=== PATIENT | female | born 1985 | race Caucasian/White ===

== ENCOUNTER 2019-08-12 07:48 | Outpatient (CLI) | payer OTHER ==
[~2019-08-12 07:48] MED LIST: PNEU16DI2; PRENATAL CAPLE1 EACH PO; ZITHROMAX500 MG PO
== END 2019-08-12 07:52 | disposition home or self-care (01) ==
LOC: RAD 07:48
PROVIDERS: ATTEND General Practice
DX: M54.5 Low back pain (principal)

== ENCOUNTER 2020-06-09 08:49 | Outpatient (CLI) | payer OTHER | END 2020-06-09 09:07 | disposition home or self-care (01) | LOC: TOM 08:49 | PROVIDERS: ATTEND General Practice | DX: M54.5 Low back pain (principal) ==